=== PATIENT | female | born 1945 | race Caucasian/White ===

== ENCOUNTER 2017-02-12 10:23 | Inpatient (IN) | payer MEDICARE, OTHER ==
[~2017-02-12] VITALS: Ht 162.6 cm; Wt 56.3 kg
[~2017-02-12 10:23] MED LIST: ACYC800T PO; ALB0.5V INH; ALBU2.5V4 NEB; ALBU8.5H2 INH; BENZ100C18 PO; BENZ200C25 PO; BUDE6HFA IH; CEFP250T2 PO; CHOL200018 PO; CYAN100053 IJ; CYAN10006 PO; FLUT1DIS26 IH; FURO40TA4 PO; GUAI-370 PO; KCL10CCR PO; LEVO50TA PO; LEVO750T24 PO; PRD20T PO; PRED10TA PO; Prednisone PO; RT-COMBINH IH; TIOT18CA IH
[2017-02-12 12:00] VITALS: BP 124/69
[2017-02-12] MEDS ORDERED: ALPRAZolam 0.25 MG (XANAX) TAB PO PRN (13:00)
[2017-02-12] MEDS ORDERED: guaiFENesin SYRUP 100 MG/5 ML 10 ML (ROBITUSSIN SF) PO SCH (13:00)
[2017-02-12] MEDS ORDERED: BENZONATATE 100 MG (TESSALON) CAPSULE PO PRN (13:00)
[2017-02-12] MEDS ORDERED: NITROGLYCERIN SUBLINGUAL 0.4 MG TAB (NITROSTAT) SL PRN (13:00)
[2017-02-12] MEDS ORDERED: APAP 325 MG/10.15 ML LIQ (TYLENOL) UDC PO PRN (13:00)
[2017-02-12] MEDS ORDERED: RT-IPRATROPIUM (ATROVENT) 0.5MG/2.5ML AMP IH SCH ×3 (14:00→21:00)
[2017-02-12] MEDS ORDERED: RT-LEVALBUTEROL (XOPENEX) 1.25 MG/3 ML NEB NON-FORMULARY INH SCH ×2 (14:00→18:00)
[2017-02-12] MEDS ORDERED: RT-IPRATROPIUM (ATROVENT) 0.5MG/2.5ML AMP IH ONE (14:09)
--- NOTE | 2017-02-12 14:21 | Occupational Therapy Eval ---
OT Evaluation-General/PLF Medical Diagnosis Admission Date Feb 12, 2017 at 11:58 Medical Diagnosis: COPD exacerbation Onset Date: Jan 02, 2017 Therapy Diagnosis Therapy Diagnosis: Weakness, Decreased ADL skills Height/Weight Height (Feet): 5 Height (Inches): 4.00 Weight (Pounds): 124 Weight (Ounces): 2.0 Weight Bear Status Weight Bearing Restriction: Weight Bearing/Tolerated Referral Physician: Dr. Steele Referral Reason: Activity Tolerance, Self Care, Evaluation/Treatment, Strengthening/ROM Medical History Pertinent Medical History: COPD, GERD Additional Medical History CHF, anxiety, GERD, hypernatremia, pulmonary nodules Current History Pt. had to be put on a vent and then had trach placed. [place] orders state that pt's dysphagia cleared for regular diet with thin liquids. Reviewed History: Yes Social History Home: Single Level Current Living Status: Alone Entry Into Home: Stairs With Railing Steps Into Home: 2 ADL-Prior Level of Function ADL PLOF Comments Previous to original hospitalization, pt is able to nod that she was independent with basic self care needs. Was still driving as well. DME/Equipment: Bath Chair, Tub/Shower Drive Self: Yes OT Current Status Subjective Pt. is able to indicate that she is not having pain. However, indicates that she gets very short of breath. Daughter explains that she gets very anxious as well. Appearance Pt. in bed. Agrees to OT evaluation. Daughter in room. Mental Status/Objective Patient Orientation: Person, Place Current Glasses/Contacts: Yes Hand Dominance: Right Upper Extremity ROM Pt. is able to flex bilateral shoulders to approximately 90 degrees. This is difficult for her and takes great effort. Upper Extremity Coordination intact Upper Extremity Strength NT due to pt's limited strength and SOA with any effort. ADL-Treatment Functional [place] Measure 0=Not Assessed/NA 4=Minimal Assistance 1=Total Assistance 5=Supervision or Setup 2=Maximal Assistance 6=Modified [place] 3=Moderate Assistance 7=Complete IndependenceIRFPAI Quality Coding Scale 6 Independent with activity with or without an assistive device 5 Patient requires set up or clean up by helper. Patient completes activity by themselves 4 Supervision or touching assist (CGA). [place] provide cues , steadying assist 3 The helper provides less than half the effort to complete the activity 2 The helper provides more than half the effort to complete the activity 1 Dependent. The helper does all the effort to complete an activity 7 Patient refused to complete or attempt activity 9 The patient did not perform the activity before the current illness or injury 88 Not attempted due to Medical conditions or safety concerns Lower Body Dressing (FIM): 5 (Pt. is able to doff and don socks on side of bed. However, requires increased time and effort.) Transfers (B, C, W/C) (FIM): 4 (Pt. requires SBA for supine-sit, and min assist for sit-stand.) Other Treatments Pt. requires frequent rest breaks. Exerts great effort to stay on side of bed. Pt. on 5 L 02, but RT to come in to assess pt. Pt's 02 sats at 97% on side of bed. Transferred back to bed with SBA. Required max x 2 for bed mobility. Education OT Patient Education: Correct positioning, Progress toward Goal/Update tx plan , Purpose of tx/functional activities, Reviewed precautions, Rehab process, Transfer techniques Teaching Recipient: Patient, Family Teaching Methods: Demonstration, Discussion Response to Teaching: Verbalize Understanding, Return Demonstration OT Short Term Goals Short Term Goals Time Frame: Feb 19, 2017 Eating(FIM): 5 Grooming(FIM): 5 Bathing(FIM): 4 Upper Body Dressing(FIM): 5 Lower Body Dressing(FIM): 5 Toileting(FIM): 4 Transfers (B,C,W/C) (FIM): 5 Toilet/Commode Transfer(FIM): 5 Shower Transfer(FIM): 4 Additional Short Term Goals: 1-Demonstrate ADL Tasks, 2-Verbalize Understanding , 3-ImproveStrength/Adriana 1=Demonstrate adherence to instructed precautions during ADL tasks. 2=Patient will verbalize/demonstrate understanding of assistive devices/ modifications for ADL. 3=Patient will improve strength/tolerance for activity to enable patient to perform ADL's. OT Fpc Goals A/C Tech Goals Time Frame: Mar 05, 2017 Eating (FIM): 6 Eating (QC): 6 Groomin Oral Hygiene (QC): 6 Bathing(FIM): 5 Shower/Bathe Self (QC): 5 Upper Body Dressing(FIM): 6 Upper Body Dressing (QC): 6 Lower Body Dressing(FIM): 6 Lower Body Dressing (QC): 6 On/Off Footwear (QC): 6 Toileting(FIM): 6 Toileting Hygiene (QC): 6 Transfers (B,C,W/C) (FIM): 6 Toilet/Commode Transfer(FIM): 6 Toilet/Commode Transfer (QC): 6 Shower Transfer(FIM): 5 Additional Goals: 1-Demonstrate ADL Tasks, 2-Verbalize Understanding, 3- ImproveStrength/Adriana 1=Demonstrate adherence to instructed precautions during ADL tasks. 2=Patient will verbalize/demonstrate understanding of assistive devices/ modifications for ADL. 3=Patient will improve strength/tolerance for activity to enable patient to perform ADL's. OT Education/Plan Problem List/Assessment Assessment: Decreased Activ Tolerance, Decreased UE Strength, Dependent Transfers, Impaired Bed Mobility, Impaired Funct Balance, Impaired I ADL's, Impaired Self-Care Skills, Restricted Funct UE ROM Discharge Recommendations Plan/Recommendations: Continue POC Therapy D/C Recommendations: Home w/ Family Support, Occupational Therapy Home Care, Scheduled Assistance Equpiment Recommendations-D/C: Extended Bath Bench, Hip Kit Barriers to Progress Pt. becomes significantly SOA with exertion. Target Placement Pt. would like to return to her own home. Treatment Plan/Plan of Care Treatment,Training & Education: Yes Patient would benefit from OT for education, treatment and training to promote independence in ADL's, mobility, safety and/or upper extremity function for ADL' s. Plan of Care: ADL Retraining, Functional Mobility, Group Exercise/Act as Ind, UE Funct Exercise/Act Treatment Duration: Mar 05, 2017 # of days/week 5-6 Visits Per Week: 10-12 Minutes/Day (M-F): 60-90 Minutes/Day (Sat/[place]): PRN Agreement: Yes Rehab Potential: Fair Time/GCodes Start Time: 12:50 Stop Time: 13:15 Total Time Billed (hr/min): 25 Billed Treatment Time 1, [id number], [id number] WILL PEGUERO OT Feb 12, 2017 14:21
--- NOTE | 2017-02-12 15:04 | ST Cognitive Linguistic Eval ---
Speech Evaluation-General Medical Diagnosis COPD exacerbation Onset Date: Jan 02, 2017 Therapy Diagnosis Therapy Diagnosis: Mild Cognitive Impairment Precautions Precautions: Aspiration Referral Referring Physician: Dr. Asaf Steele Cognitive Evaluation Medical History Pertinent Medical History: COPD, GERD Emphysema Current History Tracheostomy tube (#6 [place]), PEG tube Reviewed History: Yes Social History Current Living Status: Alone Speech PLF-Current Status Prior Level of Function The patient reported consuming a regular diet with thin liquids at home without current challenges including signs/symptoms of aspiration. Subjective The patient was recently admitted to [facility] with a diagnosis of COPD exacerbation. The patient reported fatigue upon entrance (RT was present), however, was agreeable to cognitive evaluation. The patient currently has a tracheostomy tube in place. Per patient's daughter, the patient has a [place] Speaking Valve (PMV), however, wishes to use digital occlusion instead. The patient's daughter, Candy, stated the patient becomes short of breath with PMV use. The patient's daughter will bring the PMV on 02/13/2017. Additionally, the patient has a PEG tube. The patient reported she receives nocturnal feedings and medications through her PEG tube. The patient (present family members and recent note from speech pathology of [facility] ) consumes a regular diet with thin liquids by mouth. The patient (and family members) denied signs/symptoms of aspiration with PO intake stating the reason she does not eat is secondary to her shortness of breath and effort it takes to consume adequate intake. As the patient does not require the PEG tube, she was asked if she wanted to be evaluated for oral intake of pills. The patient deferred and wishes to leave her nutrition status as is. Language Eval: Auditory Comprehends Simple Yes/No Ques: Functional Indent/Objects Multiple [place]: Functional Ident/Pics in Multiple [place]: Functional Follows 1-Step Commands: Functional Follows General Conversations: Functional Language Eval: Verbal Language Completes Spontaneous Greeting: Functional Produces Auto, Serial Info: Functional Imitates Simple Words/Phrases: Functional Word Finding: Functional Requests Basic Needs: Functional States Basic Personal Info: Functional Objective Cognitive Domain Attention: Mild (Appears secondary to fatigue and discomfort.) Memory: Mild (Per patient, she has experienced negative changes in her memory since admission.) Problem Solving: Mild (Appears secondary to fatigue and discomfort) Objective Impression The patient demonstrated mild cognitive impairments including the areas of memory and functional problem solving. Additional evaluation will take place as the patient is able to tolerate a longer treatment session. Communication/Social Cognition Comprehension: 5 Expression: 4 Social Interaction: 5 Problem Solvin Memory: 4 Speech Short Term Goals Short Term Goals Short Term Goals 1. The patient will complete full cognitive assessment. 2. The patient will recall and demonstrate three functional memory tasks for use at home with 80% accuracy and mild clinician verbal prompting. Time Frame-STG: One Week Speech Mcfp Goals Mcfp Goals 1. The patient will demonstrate improved cognitive linguistic skills for increased safety and function with ADL's. Time Frame: Two Weeks Comprehension: 6 Expression: 5 Social Interaction: 5 Problem Solvin Memory: 5 Speech-Plan Treatment Plan Speech Therapy Treatment Plan: Continue Plan of Care Continue skilled speech pathology to target functional memory strategies for use at home. Treatment Duration: Feb 26, 2017 # of days/week Five. Visits Per Week: Five. Minutes/Day (M-F): 30 Rehab Potential: Fair Safety Risks/Education Teaching Recipient: Patient, Family Teaching Methods: Discussion Response to Teaching: Verbalize Understanding, Reinforcement Needed Education Topics Provided: Results, Recommendations Time Speech Therapy Time In: 14:30 Speech Therapy Time Out: 14:45 Total Billed Time: 15 Billed Treatment Time 1, JONO AGUILA Feb 12, 2017 15:03
--- NOTE | 2017-02-12 15:20 | Physical Therapy Progress Note ---
Therapy Progress Note Pt arrived this date via EMS. Pt has been seen by OT and ST. Pt anxious at this time. Family present. Initially agreed to PT but then declined noting they felt it would increase her anxiety. Will complete PT evaluation tomorrow. ANY CAT PT Feb 12, 2017 15:20
[2017-02-12] MEDS ORDERED: RT-LEVALBUTEROL (XOPENEX) 1.25 MG/3 ML NEB NON-FORMULARY INH PRN (15:30)
[2017-02-12 16:38] LABS: ABG BASE EXCESS 19.3 MMOL/L (-2.5-2.5); ABG OXYGEN SATURATION 100 % (94-100); ABG PO2 139 MMHG (79-93); ABG TCO2 49.9 MMOL/L (21.0-31.0)
[2017-02-12 16:41] LABS: ABG PCO2 103 MMHG (35-45); ABG PH 7.28 (7.37-7.43)
[2017-02-12 16:42] LABS: ABG HCO3 47 MMOL/L (23-27); ALLENS TEST YES-POS; PATIENT TEMP 98.9
[2017-02-12 16:48] LABS: BASOPHILS % (AUTO) 0 % (0-10); EOSINOPHILS % (AUTO) 0 % (0-10); LYMPHOCYTES # (AUTO) 0.4 X 10^3 (1.0-4.0); LYMPHOCYTES % (AUTO) 5 % (12-44); MEAN CORPUSCULAR HEMOGLOBIN 32 PG (25-34); MEAN CORPUSCULAR HGB CONC 31 G/DL (32-36); MEAN CORPUSCULAR VOLUME 105 FL (80-99); MEAN PLATELET VOLUME 9.7 FL (7.4-10.4); MONOCYTES # (AUTO) 0.6 X 10^3 (0.0-1.0); MONOCYTES % (AUTO) 7 % (0-12); NEUTROPHILS # (AUTO) 6.9 X 10^3 (1.8-7.8); NEUTROPHILS % (AUTO) 87 % (42-75); PLATELET COUNT 244 10^3/uL (130-400); RED BLOOD COUNT 3.26 10^6/uL (4.35-5.85); RED CELL DISTRIBUTION WIDTH 16.6 % (10.0-14.5); WHITE BLOOD COUNT 7.9 10^3/uL (4.3-11.0)
[2017-02-12 17:06] LABS: ALANINE AMINOTRANSFERASE 19 U/L (0-55); ALBUMIN 3.5 G/DL (3.2-4.5); ASPARTATE AMINO TRANSFERASE 18 U/L (5-34); BILIRUBIN,TOTAL 0.3 MG/DL (0.1-1.0); BLOOD UREA NITROGEN 12 MG/DL (7-18); BUN/CREATININE RATIO 20; CALCIUM 9.4 MG/DL (8.5-10.1); CHLORIDE 95 MMOL/L (98-107); CREATININE SERUM 0.61 MG/DL (0.60-1.30); GFR ESTIMATED > 60; GLUCOSE 144 MG/DL (70-105); MAGNESIUM 2.5 MG/DL (1.8-2.4); POTASSIUM 4.5 MMOL/L (3.6-5.0); SODIUM 146 MMOL/L (135-145); TOTAL PROTEIN 5.8 G/DL (6.4-8.2)
[2017-02-12 17:07] LABS: BAND NEUTROPHILS 1 %; BASOPHILS % (MANUAL) 0 %; EOSINOPHILS % (MANUAL) 0 %; LYMPHOCYTES % (MANUAL) 6 %; NEUTROPHILS % (MANUAL) 93 %
[2017-02-12 17:08] LABS: ANISOCYTOSIS SLIGHT; HYPOCHROMASIA SLIGHT
[2017-02-12 17:10] LABS: ANION GAP 4 MMOL/L (5-14); CARBON DIOXIDE 47 MMOL/L (21-32)
[2017-02-12] MEDS ORDERED: IPRA0.2S51 IH (17:23)
[2017-02-12] MEDS ORDERED: NITR0.4T SL (17:23)
[2017-02-12] MEDS ORDERED: BENZ100C23 PO (17:23)
[2017-02-12] MEDS ORDERED: SENN-20 PO (17:23)
[2017-02-12] MEDS ORDERED: ALPR0.254 PO (17:23)
[2017-02-12] MEDS ORDERED: MIDO10TA PO (17:23)
[2017-02-12] MEDS ORDERED: METH40VI2 IV (17:23)
[2017-02-12] MEDS ORDERED: CALC-250 PO (17:23)
[2017-02-12] MEDS ORDERED: PANT40TA3 PO (17:23)
[2017-02-12] MEDS ORDERED: LEVA1.2516 INH ×2 (17:23)
[2017-02-12] MEDS ORDERED: MELA3TAB PO (17:23)
[2017-02-12] MEDS ORDERED: TRAZ100T92 PO (17:23)
[2017-02-12] MEDS ORDERED: AC160U10 PO (17:23)
[2017-02-12] MEDS ORDERED: POLY17PO23 PO (17:23)
[2017-02-12] MEDS ORDERED: GUAI100L13 PO (17:23)
[2017-02-12] MEDS ORDERED: ACID1TAB PO (17:23)
[2017-02-12] MEDS ORDERED: LEVO50TA PO (17:23)
[2017-02-12] MEDS ORDERED: QUET25TA73 PO (17:23)
[2017-02-12] MEDS ORDERED: MIRT15TA8 PO (17:23)
[2017-02-12 17:26] VITALS: BP 147/67
--- NOTE | 2017-02-12 17:48 | Diagnostic Imaging Report ---
CHEST 1 VIEW, AP/PA ONLY INDICATION: Wheezing, shortness of breath. COMPARISON: 05/04/2015. FINDINGS: Support Devices: Tracheostomy tube has tip approximately 6 cm above the laura. Right PICC has tip in the upper SVC. Chest: Patchy heterogeneous opacities in the left lung base are similar to prior examination. No new airspace disease. No pleural effusion or pneumothorax. Normal heart size. Stable atherosclerotic and tortuous aorta. IMPRESSION: 1. Support devices as above. 2. Left basilar heterogeneous patchy opacities are similar to 2015 examination. This may be chronic in nature, although a recurrent infectious/inflammatory process cannot be excluded. Dictated by: Dictated on workstation # [id number]
[2017-02-12 17:50] VITALS: BP 147/67
[2017-02-12] MEDS ORDERED: methylPREDNISolone 40 MG/ML (Solu-MEDROL) VIAL IV SCH (18:00)
[2017-02-12] MEDS ORDERED: MIRTAZAPINE 15 MG (REMERON) TAB PO SCH (21:00)
[2017-02-12] MEDS ORDERED: POLYETHYLENE GLYCOL 17 GM (MIRALAX) PACK PO SCH (21:00)
[2017-02-12] MEDS ORDERED: MELATONIN 3 MG TABLET PO SCH (21:00)
[2017-02-12] MEDS ORDERED: traZODone 100 MG (DESYREL) TAB PO SCH (21:00)
[2017-02-12] MEDS ORDERED: LACTOBACILLUS Acidoph/Bulgar (LACTINEX/FLORANEX) TAB PO SCH (21:00)
[2017-02-12] MEDS ORDERED: SENNA W/DOCUSATE (SENOKOT S) TABLET PO SCH (21:00)
[2017-02-12] MEDS ORDERED: QUEtiapine 25 MG (SEROquel) TAB IMMEDIATE RELEASE PO SCH (21:00)
[2017-02-12] MEDS ORDERED: PANTOPRAZOLE 40 MG (PROTONIX) TAB PO SCH (21:00)
[2017-02-12] MEDS ORDERED: METOCLOPRAMIDE 10MG/10ML ORAL SOL(REGLAN) UDC PO SCH (21:00)
[2017-02-13] MEDS ORDERED: LEVOTHYROXINE 50 MCG (LEVOTHROID) TAB PO SCH (06:30)
[2017-02-13] MEDS ORDERED: predniSONE 10 MG TAB PO SCH (07:00)
[2017-02-13] MEDS ORDERED: predniSONE 5 MG TAB PO SCH (07:00)
[2017-02-13] MEDS ORDERED: MIDODRINE 10 MG TAB PO SCH ×3 (09:00)
[2017-02-13] MEDS ORDERED: MIDODRINE 10 MG PO SCH (09:00)
[2017-02-13] MEDS ORDERED: VITAMIN D3 5,000 UNITS (CHOLECALCIFEROL ) CAPSULE PO SCH (09:00)
--- NOTE | 2017-02-13 10:11 | Therapy Team Discharge Summary ---
Therapy Discharge Summary Discharge Recommendations Date of Discharge Feb 12, 2017 at 17:47 Therapy D/C Recommendations: Home w/ Family Support, Occupational Therapy Home Care, Scheduled Assistance Speech-Language Pathology The patient was admitted to [facility] on 02/12/17 with a diagnosis of severe COPD exacerbation. The patient was evaluated by speech pathology and demonstrated a mild cognitive impairment in the area of memory. Prior to the onset of therapy, the patient was transferred to [facility] due to respiratory issues. The initial goals were not attempted or made. The patient will be discharged for speech services at this time. OT Chemical Equipment Repairer Goals Chemical Equipment Repairer Goals Time Frame: Mar 05, 2017 Eating (FIM): 6 Eating (QC): 6 Oral Hygiene (QC): 6 Grooming(FIM): 6 Bathing(FIM): 5 Shower/Bathe Self (QC): 5 Upper Body Dressing(FIM): 6 Upper Body Dressing (QC): 6 Lower Body Dressing(FIM): 6 Lower Body Dressing (QC): 6 On/Off Footwear (QC): 6 Toileting(FIM): 6 Toileting Hygiene (QC): 6 Transfers (B,C,W/C) (FIM): 6 Toilet/Commode Transfer(FIM): 6 Toilet/Commode Transfer (QC): 6 Shower Transfer(FIM): 5 Comprehension(FIM): 6 Expression (FIM): 5 Social Interaction(FIM): 5 Problem Solving(FIM): 5 Memory(FIM): 5 Additional Goals: 1-Demonstrate ADL Tasks, 2-Verbalize Understanding, 3- ImproveStrength/Adriana 1=Demonstrate adherence to instructed precautions during ADL tasks. 2=Patient will verbalize/demonstrate understanding of assistive devices/ modifications for ADL. 3=Patient will improve strength/tolerance for activity to enable patient to perform ADL's. Speech Shelter Goals Shelter Goals 1. The patient will demonstrate improved cognitive linguistic skills for increased safety and function with ADL's. Time Frame: Two Weeks Comprehension: 6 Expression: 5 Social Interaction: 5 Problem Solvin Memory: 5 JONO ALVARADO Feb 13, 2017 10:11
--- NOTE | 2017-02-14 08:26 | SHORT STAY SUMMARY ---
DATE OF ADMISSION: 02/12/2017 CHIEF COMPLAINT: Shortness of breath, difficulty with performing normal routine. HISTORY OF PRESENT ILLNESS: The patient is a 71-year-old female with a history of advanced COPD and chronic respiratory failure with home trilogy who admitted to [facility] on 01/02/2017 with acute respiratory failure secondary to exacerbation of COPD. She had been on outpatient Levaquin and prednisone prior to presenting to [place]. Multiple cultures and viral titers were all negative. She continued to deteriorate, however. She was admitted to hospitalist service and then went to the ICU due to obtunded state associated with elevated pCO2 greater 130. She could not be weaned from mechanical ventilation and underwent tracheostomy and PEG tube placement by Dr. Garcia. She experienced problems with hypotension which seemed to be induced by Ativan. She was treated with phenylephrine. stabilized and transferred to [facility] for vent weaning. She improved gradually and eats during the day and has supplemental tube feeds at night. She becomes more short of breath with eating. She was treated with antibiotics throughout her admission empirically as all cultures were negative. Currently, she requires assistance for ADLs and mobility skills. She has anxiety, depression and dyspnea on exertion, limited endurance, fatigues easily. She had been independent prior to all this but has a history of COPD exacerbations and was last on a ventilator 7 years ago and did not require tracheostomy and was weaned at that time. She has a supportive daughter, who is a teacher in [place], The patient lives in [place]. PCP Dr. Jesus. The Charge Account Identification Clerk at [place] Dr. Nath discussed the case with Dr. Steele prior to transfer to rehab at [facility] for ongoing therapies where she was referred so as to be closer to home. She was followed by log rafter, Dr. Nicolas at [facility] and Dr. Terrazas has been requested to follow patient here. PAST MEDICAL HISTORY: 1. COPD with acute exacerbation. 2. CHF. 3. Anxiety. 4. Depression. 5. GERD. 6. Hyperlipidemia. 7. Hypertension. PAST SURGICAL HISTORY: 1. Appendectomy. 2. Total hysterectomy. 3. Tonsillectomy. 4. Bladder mesh implantation. 5. Most recent tracheostomy and PEG tube placement. ALLERGIES: 1. INTOLERANCE TO HYDROCODONE. 2. OXYCODONE. FAMILY HISTORY: Noncontributory. Essentially as per above. SOCIAL HISTORY: Essentially as per above. REVIEW OF SYSTEMS: Dyspnea on exertion, easy fatigue, anxiety, depression and generalized weakness. MEDICATIONS: 1. Vitamin D3 5000 units p.o. daily. 2. Midodrine 5 mg p.o. daily to support blood pressure. 3. Prednisone 12.5 mg p.o. daily. 4. Synthroid 50 mcg p.o. daily. 5. Lactinex 1 tablet p.o. b.i.d. 6. Melatonin 6 mg p.o. at bedtime. 7. Reglan 10 mg p.o. at bedtime. 8. MiraLAX 17 grams p.o. at bedtime. 9. Remeron 50 mg p.o. at bedtime. 10. Protonix 40 mg p.o. b.i.d. 11. Seroquel 25 mg p.o. at bedtime. 12. Senokot-S 1 tablet p.o. b.i.d. 13. Trazodone 100 mg p.o. at bedtime. 14. Atrovent respiratory treatments q.6 hours. 15. Xopenex 1.25 mg respiratory treatments q.8 hours. 16. Guaifenesin 200 mg p.o. t.i.d. 17. Xanax 0.25 mg p.o. q.8 hours p.r.n. anxiety. 18. Tessalon 200 mg p.o. q.6 hours p.r.n. cough. 19. Nitrostat 0.4 mg q. 5 minutes p.r.n. Sublingual p.r.n. chest pain. PHYSICAL EXAMINATION: Significant for a female, appearing quite fatigued, lying in bed in no acute distress. VITAL SIGNS: She is afebrile. Pulse is 99, respirations 20, blood pressure 124/69. O2 sat 97% on 40% trach collar flow-in. HEENT: Vision, speech, hearing, grossly intact. No oral lesion is noted. NECK: Tracheostomy in place with trach collar. HEART: Regular rhythm. LUNGS: Clear. ABDOMEN: Soft, nontender. Bowel sounds present. EXTREMITIES: No lower leg edema. No calf tenderness. MUSCULOSKELETAL: She has functional active range of motion of all 4 extremities. NEUROLOGIC: Appears somewhat depressed but cognitively she was grossly intact. Sensation grossly intact to touch. She has generalized weakness. IMPRESSION: 1. General debilitation secondary to acute exacerbation of COPD with respiratory failure, currently on O2 by trach collar, status post tracheostomy. 2. Status post PEG tube placement for supplemental tube feeds. 3. Anxiety/depression, on medications. 4. Insomnia, on medications. 5. GERD, on medications. PLAN: The patient is admitted to [facility]U for a comprehensive program of inpatient rehabilitation with goal of maximizing level of functional independence prior to discharge home with family and home health care. The patient will have PT/OT 90 minutes per day, each discipline, 5 days week for gait strengthening, conditioning, ADLs, any patient/family/caregiver training necessary, any adaptive equipment and training necessary, energy conservation. Speech therapy to do cognitive assessment and treat as indicated. Rehabilitation nursing assist with bowel, bladder, skin, wound care, medication administration. The patient has a sacral pressure sore and Dr. Taylor, account resolution specialist consulted pain management. technical services librarian to assist with discharge planning, community reentry. Routine admission labs. Consult hospitalist and Dr. Terrazas and Dr. Jesus, her PCP. ESTIMATED LENGTH OF STAY: Two weeks. PROGNOSIS: Rehab prognosis appears fair for goal of enhancing level of functional independence prior to discharge home with home health care, hopefully modified independent to supervision for ADLs and mobility skills with decreased dyspnea on exertion and improved tolerance for normal routine. DIET: Regular. CODE STATUS: Family, patient requested DNR. POST ADMISSION PHYSICIAN ASSESSMENT: The preadmission screen unfortunately does not agree with the post admission assessment: Approximately 2 hours post admission the family presented to see patient and the patient and family became more anxious. The patient had an ABG which showed CO2 retention and respiratory acidosis. Dr. Terrazas felt the patient will be more appropriate for fourth floor medical care and the patient was transferred to the medical unit on 4th floor. No real therapies were able to be provided. The patient did have an assessment with OT and speech therapy. Perhaps once the patient further improves the patient may be considered for rehab. Otherwise perhaps senior care unit versus hospice/ palliative care consult. Short-term discharge note The patient was on rehab unit for less than 3 hours when she was transferred to the medical floor by Dr. Terrazas for evaluation and treatment. WBC 7.9, H&H 10.4/34, platelet count 244,000. Chemistry showed low total protein of 5.8, CO2 elevated at 47, blood glucose 144. ABG was abnormal indicating respiratory acidosis with pH low at 7.28, pCO2 elevated at 103, pO2 was 139, HC03 47. Vital signs as outlined above. She was assessed by speech therapy and her attention appeared to be mildly impaired, which appear to be secondary to fatigue and discomfort. Memory was mildly impaired, which the patient reports having since admission to [facility]. Mild problem solving was noted as well felt to be secondary to fatigue and discomfort. Speech therapy was going to work with patient, but as per above the patient was only on rehab for short period of time. The patient was assessed by Dr. Terrazas as per above and felt to be more appropriate for medical floor of admission. DISCHARGE INSTRUCTIONS: The patient will have follow-up with Dr. Terrazas and quite possibly hospital service in lieu of Dr. Jesus while on the medical floor. Continue current medications and nocturnal tube feedings. She is on multiple medications and certainly may benefit from being assessed and perhaps some weaned particularly in regard to her pills for sleep and for anxiety and depression. Dr. Terrazas has started IV Solu-Medrol for her. DISCHARGE DIAGNOSES: 1. Rehabilitation general debilitation secondary to acute exacerbation of COPD with resulting respiratory failure asociated with respirtory acidosis, status post trach and PEG tube outside facility. 2. Anxiety/depression on medication. 3. GERD, on medication 4. Macrocytic anemia. CONDITION AT DISCHARGE: Unimproved, but stable for transfer to 4th floor, medical unit. PROGNOSIS: Rehab prognosis appears somewhat guarded at this point. It is my understanding that the patient was made comfort care soon after transfer to medical unit and the next day the 13 of february Job ID: [id number] Dictated Date: 02/12/2017 21:03:36 Road Supervisor Date: 02/13/2017 08:08:18/noel FITZGERALD
--- NOTE | 2017-02-16 08:28 | Therapy Team Discharge Summary ---
Therapy Discharge Summary Discharge Recommendations Date of Discharge Feb 12, 2017 at 17:47 Occupational Therapy Pt. was seen by occupational therapy for initial evaluation on this rehab unit. Goals were written at that time. Please see initial eval. Pt. transferred to acute care the next day due to decline in medical status. Pt. the day after that. 0825 OT Skilled Nursing Goals Designer Writer Goals Time Frame: Mar 05, 2017 Eating (FIM): 6 Eating (QC): 6 Oral Hygiene (QC): 6 Grooming(FIM): 6 Bathing(FIM): 5 Shower/Bathe Self (QC): 5 Upper Body Dressing(FIM): 6 Upper Body Dressing (QC): 6 Lower Body Dressing(FIM): 6 Lower Body Dressing (QC): 6 On/Off Footwear (QC): 6 Toileting(FIM): 6 Toileting Hygiene (QC): 6 Transfers (B,C,W/C) (FIM): 6 Toilet/Commode Transfer(FIM): 6 Toilet/Commode Transfer (QC): 6 Shower Transfer(FIM): 5 Comprehension(FIM): 6 Expression (FIM): 5 Social Interaction(FIM): 5 Problem Solving(FIM): 5 Memory(FIM): 5 Additional Goals: 1-Demonstrate ADL Tasks, 2-Verbalize Understanding, 3- ImproveStrength/Adriana 1=Demonstrate adherence to instructed precautions during ADL tasks. 2=Patient will verbalize/demonstrate understanding of assistive devices/ modifications for ADL. 3=Patient will improve strength/tolerance for activity to enable patient to perform ADL's. Speech Designer Writer Goals Designer Writer Goals 1. The patient will demonstrate improved cognitive linguistic skills for increased safety and function with ADL's. Time Frame: Two Weeks Comprehension: 6 Expression: 5 Social Interaction: 5 Problem Solvin Memory: 5 WILL PEGUERO OT Feb 16, 2017 08:28
--- OUTSIDE RECORDS SUMMARY | 2017-03-08 06:28 | XMS REPORT | Continuity of Care Document ---
Author Author [facility] Organization [facility] Address Unknown Phone Unavailable Allergies Active Description Code Type Severity Reaction Onset Reported/Identified Relationship to Patient Clinical Status Yes clarithromycin [id number] Drug Allergy Unknown N/A 05/04/2015 Yes albuterol [id number] Drug Allergy Unknown N/A 02/12/2017 Yes hydrocodone [id number] Drug Allergy Unknown Sedation 02/12/2017 Yes oxycodone [id number] Drug Allergy Unknown Sedation 02/12/2017 Medications Problems Date Dx Coded Attending Type Code Diagnosis Diagnosed By 09/23/2010 Ot 300.00 09/23/2010 Ot 305.1 09/23/2010 Ot 486 09/23/2010 Ot 491.21 09/23/2010 Ot 518.81 09/23/2010 Ot 599.0 09/23/2010 Ot 795.5 01/27/2011 Ot 496 01/27/2011 Ot 786.2 01/27/2011 Ot V57.89 04/30/2011 Ot 496 04/30/2011 Ot 786.2 04/30/2011 Ot V57.89 09/19/2012 Ot 486 05/04/2015 Ot V76.12 05/04/2015 Ot 787.91 05/04/2015 Ot 496 05/04/2015 Ot 786.2 05/04/2015 Ot V57.89 05/04/2015 Ot 416.8 05/04/2015 Ot 486 05/04/2015 CATIE ROSAS Ot 433.30 05/04/2015 CATIE ARSHAD APRN Ot 780.60 05/04/2015 CATIE ARSHAD APRN Ot 786.2 05/04/2015 Ot 496 05/04/2015 Ot 786.2 05/04/2015 Ot V57.89 05/04/2015 Ot 486 05/06/2015 BENJA ROSAS DO Ot 275.42 05/06/2015 BENJA ROSAS DO Ot 276.8 05/06/2015 ROSAS DO, BENJA Painting Ot 300.00 05/06/2015 ROSAS DO, BENJA Painting Ot 416.9 05/06/2015 ROSAS DO, BENJA Painting Ot 465.9 05/06/2015 ROSAS DO, BENJA Painting Ot 491.21 05/06/2015 ROSAS DO, BENJA Painting Ot 782.3 05/06/2015 ROSAS DO, BENJA Painting Ot 785.0 05/06/2015 ROSAS DO, BENJA Painting Ot V15.82 05/21/2015 ROSAS DO, BENJA Painting Ot 244.9 05/21/2015 ROSAS DO, BENJA Painting Ot 276.69 05/21/2015 ROSAS DO, BENJA Painting Ot 416.8 05/21/2015 ROSAS DO, BENJA Painting Ot 496 05/21/2015 ROSAS DOBENJA Ot 518.84 05/21/2015 ROSAS DOBENJA Ot 599.0 05/21/2015 ROSAS DO BENJA Painting Ot V15.82 02/12/2017 Ot 486 PNEUMONIA, ORGANISM NOS 02/12/2017 MORRO CASEY, ANTIONE Serrano Ot F32.9 MAJOR DEPRESSIVE DISORDER, SINGLE EPISOD 02/12/2017 ANTIONE HOOKER MD, Ot F41.9 ANXIETY DISORDER, UNSPECIFIED 02/12/2017 MORRO CASEY, ANTIONE Serrano Ot G47.00 INSOMNIA, UNSPECIFIED 02/12/2017 ANTIONE HOOKER MD Ot J44.9 CHRONIC OBSTRUCTIVE PULMONARY DISEASE, U 02/12/2017 ANTIONE HOOKER MD Ot J96.10 CHRONIC RESPIRATORY FAILURE, UNSP W HYPO 02/12/2017 ANTIONE HOOKER MD Ot K21.9 GASTRO-ESOPHAGEAL REFLUX DISEASE WITHOUT 02/12/2017 ANTIONE HOOKER MD Ot L89.150 PRESSURE ULCER OF SACRAL REGION, UNSTAGE 02/12/2017 ANTIONE HOOKER MD Ot Z93.0 TRACHEOSTOMY STATUS 02/12/2017 ANTIONE HOOKER MD Ot Z93.1 GASTROSTOMY STATUS 02/13/2017 SABRA NEWMAN DO, Ot F41.9 ANXIETY DISORDER, UNSPECIFIED 02/13/2017 SABRA NEWMAN DO, Ot J44.9 CHRONIC OBSTRUCTIVE PULMONARY DISEASE, U 02/13/2017 SABRA NEWMAN DO Ot R06.00 DYSPNEA, UNSPECIFIED 02/13/2017 NEWMAN DO SABRA Ot Z51.5 ENCOUNTER FOR PALLIATIVE CARE 02/13/2017 NEWMAN DO SABRA Ot Z66 DO NOT RESUSCITATE 02/13/2017 TRENT DO SABRA Ot Z87.891 PERSONAL HISTORY OF NICOTINE DEPENDENCE 02/13/2017 NEWMAN DO SABRA Ot Z93.0 TRACHEOSTOMY STATUS 02/13/2017 TRENT DO SABRA Ot F41.9 ANXIETY DISORDER, UNSPECIFIED 02/13/2017 TRENT DO SABRA Ot J44.9 CHRONIC OBSTRUCTIVE PULMONARY DISEASE, U 02/13/2017 NEWMAN DO SABRA Ot R06.00 DYSPNEA, UNSPECIFIED 02/13/2017 NEWMAN DO SABRA Ot Z51.5 ENCOUNTER FOR PALLIATIVE CARE 02/13/2017 NEWMAN DO SABRA Ot Z66 DO NOT RESUSCITATE 02/13/2017 TRENT DO SABRA Ot Z87.891 PERSONAL HISTORY OF NICOTINE DEPENDENCE 02/13/2017 TRENT DO SABRA Ot Z93.0 TRACHEOSTOMY STATUS 02/13/2017 TRENT DO SABRA Ot F41.9 ANXIETY DISORDER, UNSPECIFIED 02/13/2017 TRENT DO SABRA Ot J44.9 CHRONIC OBSTRUCTIVE PULMONARY DISEASE, U 02/13/2017 TRENT DO SABRA Ot R06.00 DYSPNEA, UNSPECIFIED 02/13/2017 TRENT DO SABRA Ot Z51.5 ENCOUNTER FOR PALLIATIVE CARE 02/13/2017 NEWMAN DO SABRA Ot Z66 DO NOT RESUSCITATE 02/13/2017 TRENT DO SABRA Ot Z87.891 PERSONAL HISTORY OF NICOTINE DEPENDENCE 02/13/2017 TRENT DO SABRA Ot Z93.0 TRACHEOSTOMY STATUS 02/14/2017 TRENT DO SABRA Ot E03.9 HYPOTHYROIDISM, UNSPECIFIED 02/14/2017 TRENT DO SABRA Ot E78.00 PURE HYPERCHOLESTEROLEMIA, UNSPECIFIED 02/14/2017 TRENT DO SABRA Ot F41.9 ANXIETY DISORDER, UNSPECIFIED 02/14/2017 TRENT DO SABRA Ot I10 ESSENTIAL (PRIMARY) HYPERTENSION 02/14/2017 TRENT DO SABRA Ot J44.9 CHRONIC OBSTRUCTIVE PULMONARY DISEASE, U 02/14/2017 TRENT DO SABRA Ot J96.02 ACUTE RESPIRATORY FAILURE WITH HYPERCAPN 02/14/2017 SABRA NEWMAN DO Ot Z51.5 ENCOUNTER FOR PALLIATIVE CARE 02/14/2017 SABRA NEWMAN DO Ot Z66 DO NOT RESUSCITATE 02/14/2017 SABRA NEWMAN DO Ot Z87.891 PERSONAL HISTORY OF NICOTINE DEPENDENCE 02/14/2017 SABRA NEWMAN DO Ot Z93.0 TRACHEOSTOMY STATUS Procedures Results Test Result Range Complete blood count (CBC) with automated white blood cell (WBC) differential - 02/12/17 14:43 Blood leukocytes automated count (number/volume) 7.9 10*3/ uL 4.3-11.0 Blood erythrocytes automated count (number/volume) 3.26 10*6 /uL 4.35-5.85 Venous blood hemoglobin measurement (mass/volume) 10.4 g/dL 11.5-16.0 Blood hematocrit (volume fraction) 34 % 35-52 Automated erythrocyte mean corpuscular volume 105 [foz_us] 80-99 Automated erythrocyte mean corpuscular hemoglobin (mass per erythrocyte) 32 pg 25-34 Automated erythrocyte mean corpuscular hemoglobin concentration measurement ( mass/volume) 31 g/dL 32-36 Automated erythrocyte distribution width ratio 16.6 % 10.0-14.5 Automated blood platelet count (count/volume) 244 10*3/uL 130-400 Automated blood platelet mean volume measurement 9.7 [foz_us ] 7.4-10.4 Automated blood neutrophils/100 leukocytes 87 % 42-75 Automated blood lymphocytes/100 leukocytes 5 % 12-44 Blood monocytes/100 leukocytes 7 % 0-12 Automated blood eosinophils/100 leukocytes 0 % 0-10 Automated blood basophils/100 leukocytes 0 % 0-10 Blood neutrophils automated count (number/volume) 6.9 10*3 1.8-7.8 Blood lymphocytes automated count (number/volume) 0.4 10*3 1.0-4.0 Blood monocytes automated count (number/volume) 0.6 10*3 0.0-1.0 Automated eosinophil count 0.0 10*3/uL 0.0-0.3 Automated blood basophil count (count/volume) 0.0 10*3/uL 0.0-0.1 Blood manual differential performed detection - 02/12/17 14:43 Blood monocytes/100 leukocytes 0 % NRG Manual blood segmented neutrophils/100 leukocytes 93 % NRG Blood band neutrophils/100 leukocytes 1 % NRG Manual blood lymphocytes/100 leukocytes 6 % NRG Manual eosinophils/100 leukocytes in nose 0 % NRG Manual blood basophils/100 leukocytes 0 % NRG Blood anisocytosis detection by light microscopy SLIGHT NRG Blood hypochromia detection by light microscopy SLIGHT NRG Comprehensive metabolic panel - 02/12/17 14:43 Serum or plasma sodium measurement (moles/volume) 146 mmol/ L 135-145 Serum or plasma potassium measurement (moles/volume) 4.5 mmol/L 3.6-5.0 Serum or plasma chloride measurement (moles/volume) 95 mmol/ L 98-107 Carbon dioxide 47 mmol/L 21-32 Serum or plasma anion gap determination (moles/volume) 4 mmol/L 5-14 Serum or plasma urea nitrogen measurement (mass/volume) 12 mg/dL 7-18 Serum or plasma creatinine measurement (mass/volume) 0.61 mg /dL 0.60-1.30 Serum or plasma urea nitrogen/creatinine mass ratio 20 NRG Serum or plasma creatinine measurement with calculation of estimated glomerular filtration rate > NRG Serum or plasma glucose measurement (mass/volume) 144 mg/dL 70-105 Serum or plasma calcium measurement (mass/volume) 9.4 mg/dL 8.5-10.1 Serum or plasma total bilirubin measurement (mass/volume) 0.3 mg/dL 0.1-1.0 Serum or plasma alkaline phosphatase measurement (enzymatic activity/volume) 78 U/L 40-136 Serum or plasma aspartate aminotransferase measurement (enzymatic activity/ volume) 18 U/L 5-34 Serum or plasma alanine aminotransferase measurement (enzymatic activity/volume ) 19 U/L 0-55 Serum or plasma protein measurement (mass/volume) 5.8 g/dL 6.4-8.2 Serum or plasma albumin measurement (mass/volume) 3.5 g/dL 3.2-4.5 Magnesium - 02/12/17 14:43 Magnesium 2.5 mg/dL 1.8-2.4 Serum or plasma lithium measurement (moles/volume) - 02/12/17 14:43 BNP level 46.1 pg/mL <100.0 Arterial blood gas measurement - 02/12/17 16:31 Blood pCO2 103 mm[Hg] 35-45 Blood pO2 139 mm[Hg] 79-93 Arterial blood bicarbonate measurement (moles/volume) 47 mmol/L 23-27 Arterial blood base excess by calculation 19.3 mmol/L -2.5-2.5 Arterial blood oxygen saturation measurement 100 % 94-100 * Inhaled oxygen flow rate 75% NRG Arterial blood pH measurement with patient temperature correction 7.28 7.37-7.43 Arterial blood carbon dioxide, total measurement (moles/volume) 49.9 mmol/L 21.0-31.0 Body site RT RAD NRG Assessment of wrist artery patency prior to arterial puncture YES-POS NRG Setting of ventilation mode NO NRG Measurement of body temperature 98.9 NRG Arterial blood gas measurement - 02/13/17 03:45 Blood pCO2 110 mm[Hg] 35-45 Blood pO2 76 mm[Hg] 79-93 Arterial blood bicarbonate measurement (moles/volume) 48 mmol/L 23-27 Arterial blood base excess by calculation 19.8 mmol/L -2.5-2.5 Arterial blood oxygen saturation measurement 95 % 94-100 * Inhaled oxygen flow rate 100% NRG Arterial blood pH measurement with patient temperature correction 7.26 7.37-7.43 Arterial blood carbon dioxide, total measurement (moles/volume) 51.0 mmol/L 21.0-31.0 Body site L RAD NRG Assessment of wrist artery patency prior to arterial puncture YES-POS NRG Setting of ventilation mode NO NRG Measurement of body temperature 98.6 NRG Encounters ACCT No. Visit Date/Time Discharge Status Pt. Type Provider Facility Loc./Unit Complaint [id number] 02/12/2017 18:01:00 2016 07:55:00 DIS Inpatient SABRA NEWMAN DO [facility] 4TH COPD, RESPIRATORY FAILURE [id number] 02/12/2017 11:58:00 2016 17:47:00 DIS Inpatient ANTIONE HOOKER MD [facility] IRF RESPIRATORY FAILURE, COPD [id number] 05/18/2015 12:15:00 2014 12:40:00 DIS Inpatient BENJA ROSAS DO [facility] 4TH [id number] 05/04/2015 07:08:00 2014 17:33:00 DIS Inpatient BENJA ROSAS DO [facility] 4TH [id number] 05/16/2013 16:14:00 2012 23:59:59 CLS Outpatient CATIE ARSHAD MANAGER DEVELOPMENT [facility] RAD [id number] 04/12/2013 11:48:00 2012 23:59:59 CLS Outpatient ROSASCATIE Fortunato STOKESP [facility] RAD [id number] 05/04/2015 06:13:00 Document Registration [id number] 05/04/2015 06:13:00 Document Registration [id number] 09/20/2012 00:00:00 Document Registration [id number] 07/01/2012 13:02:00 Document Registration [id number] 06/21/2012 14:57:00 Document Registration [id number] 05/01/2011 13:00:00 Document Registration [id number] 02/13/2011 13:00:00 Document Registration [id number] 01/14/2011 13:00:00 Document Registration [id number] 10/23/2010 12:30:00 Document Registration [id number] 09/16/2010 17:15:00 Document Registration [id number] 05/09/2010 12:58:00 Document Registration
== END 2017-02-12 17:47 | disposition short-term general hospital (02) | DRG 189 ==
LOC: DELPENDDIS
PROVIDERS: ADMIT Physical Medicine & Rehabilitation; ATTEND Physical Medicine & Rehabilitation
DX: J96.10 Chronic respiratory failure, unspecified whether with hypoxia or hypercapnia (principal); J44.9 Chronic obstructive pulmonary disease, unspecified; Z93.0 Tracheostomy status; Z93.1 Gastrostomy status; F41.9 Anxiety disorder, unspecified; F32.9 Major depressive disorder, single episode, unspecified; G47.00 Insomnia, unspecified; K21.9 Gastro-esophageal reflux disease without esophagitis; L89.150 Pressure ulcer of sacral region, unstageable
CPT/HCPCS: 36415; 71010; 80053; 82805; 83735; 83880; 85007; 85027; 94640; 94760

== ENCOUNTER 2017-02-12 17:41 | Inpatient (IN) | payer MEDICARE, OTHER ==
[~2017-02-12] VITALS: Ht 162.6 cm; Wt 56.3 kg
[~2017-02-12 17:41] MED LIST changes: +AC160U10 PO; +ACID1TAB PO; +ALPR0.254 PO; +BENZ100C23 PO; +CALC-250 PO; +GUAI100L13 PO; +IPRA0.2S51 IH; +LEVA1.2516 INH; +MELA3TAB PO; +METH40VI2 IV; +MIDO10TA PO; +MIRT15TA8 PO; +NITR0.4T SL; +PANT40TA3 PO; +POLY17PO23 PO; +QUET25TA73 PO; +SENN-20 PO; +TRAZ100T92 PO
[2017-02-12] MEDS ORDERED: BENZONATATE 100 MG (TESSALON) CAPSULE PO PRN (18:15)
[2017-02-12] MEDS ORDERED: NITROGLYCERIN SUBLINGUAL 0.4 MG TAB (NITROSTAT) SL PRN (18:15)
[2017-02-12] MEDS ORDERED: APAP 325 MG/10.15 ML LIQ (TYLENOL) UDC PO PRN (18:15)
[2017-02-12] MEDS ORDERED: ALPRAZolam 0.25 MG (XANAX) TAB PO PRN (18:15)
[2017-02-12 18:25] VITALS: BP 141/71
[2017-02-12 19:25] VITALS: BP 127/71
[2017-02-12] MEDS: methylPREDNISolone 40 MG/ML (Solu-MEDROL) VIAL IV SCH (19:31)
[2017-02-12] MEDS ORDERED: RT-LEVALBUTEROL (XOPENEX) 1.25 MG/3 ML NEB NON-FORMULARY ONE (19:45)
[2017-02-12] MEDS: RT-IPRATROPIUM (ATROVENT) 0.5MG/2.5ML AMP IH SCH (20:14)
[2017-02-12] MEDS: RT-LEVALBUTEROL (XOPENEX) 1.25 MG/3 ML NEB NON-FORMULARY INH SCH (20:14)
[2017-02-12] MEDS ORDERED: traZODone 100 MG (DESYREL) TAB PO SCH (21:00)
[2017-02-12] MEDS ORDERED: guaiFENesin SYRUP 100 MG/5 ML 10 ML (ROBITUSSIN SF) PO SCH (21:00)
[2017-02-12] MEDS ORDERED: POLYETHYLENE GLYCOL 17 GM (MIRALAX) PACK PO SCH (21:00)
[2017-02-12] MEDS ORDERED: SENNA W/DOCUSATE (SENOKOT S) TABLET PO SCH (21:00)
[2017-02-12] MEDS ORDERED: LACTOBACILLUS Acidoph/Bulgar (LACTINEX/FLORANEX) TAB PO SCH (21:00)
[2017-02-12] MEDS ORDERED: QUEtiapine 25 MG (SEROquel) TAB IMMEDIATE RELEASE PO SCH (21:00)
[2017-02-12] MEDS ORDERED: MIRTAZAPINE 15 MG (REMERON) TAB PO SCH (21:00)
[2017-02-12] MEDS ORDERED: MELATONIN 3 MG TABLET PO SCH (21:00)
[2017-02-12] MEDS ORDERED: PANTOPRAZOLE 40 MG (PROTONIX) TAB PO SCH (21:00)
[2017-02-13] VITALS: BP 122/58
[2017-02-13] MEDS: methylPREDNISolone 40 MG/ML (Solu-MEDROL) VIAL IV SCH (00:16)
[2017-02-13] MEDS: RT-LEVALBUTEROL (XOPENEX) 1.25 MG/3 ML NEB NON-FORMULARY INH SCH ×2 (03:01→13:57)
[2017-02-13] MEDS: RT-IPRATROPIUM (ATROVENT) 0.5MG/2.5ML AMP IH SCH ×2 (03:01→13:57)
[2017-02-13 03:35] VITALS: BP 124/60
[2017-02-13 04:02] LABS: ABG BASE EXCESS 19.8 MMOL/L (-2.5-2.5); ABG OXYGEN SATURATION 95 % (94-100); ABG PO2 76 MMHG (79-93)
[2017-02-13 04:04] LABS: ALLENS TEST YES-POS
[2017-02-13 04:05] LABS: PATIENT TEMP 98.6
[2017-02-13 04:06] LABS: ABG HCO3 48 MMOL/L (23-27); ABG PCO2 110 MMHG (35-45); ABG PH 7.26 (7.37-7.43)
[2017-02-13] MEDS ORDERED: LORazepam INJ 2 MG/ML (ATIVAN) VIAL IVP PRN (04:30)
[2017-02-13] MEDS ORDERED: ACETAMINOPHEN 650 MG SUPP (TYLENOL) PR PRN (04:30)
[2017-02-13] MEDS ORDERED: morphine INJ 4 MG/ML 1 ML (VIAL/SYRINGE) IVP PRN (04:30)
[2017-02-13] MEDS ORDERED: ARTIFICAL TEARS 0.4 ML UNIT DOSE (REFRESH PLUS) OU PRN (04:30)
[2017-02-13] MEDS ORDERED: BISACODYL 10 MG SUPP (DULCOLAX) PR PRN (04:30)
[2017-02-13] MEDS ORDERED: SALIVA STIMULANT MOUTH SPRAY (BIOTENE) 1.5 OZ MM PRN (04:30)
[2017-02-13] MEDS ORDERED: RT-ALBUTEROL/IPRATROPIUM 3 ML (DUONEB) VIAL INH PRN (04:30)
[2017-02-13] MEDS ORDERED: PROMETHAZINE INJ 25 MG/ML (PHENERGAN) AMP IVP PRN (04:30)
[2017-02-13] MEDS ORDERED: GLYCOPYRROLATE 0.2 MG/ML (ROBINUL) 2 ML VIAL IV PRN (04:30)
[2017-02-13] MEDS ORDERED: ONDANSETRON 4 MG/2 ML (SDV) Z0FRAN IVP PRN (04:30)
[2017-02-13] MEDS ORDERED: morphine INJ 4 MG/ML 1 ML (VIAL/SYRINGE) ONE (04:32)
[2017-02-13] MEDS ORDERED: LEVOTHYROXINE 50 MCG (LEVOTHROID) TAB PO SCH (06:30)
[2017-02-13] MEDS ORDERED: predniSONE 5 MG TAB PO SCH (07:00)
[2017-02-13] MEDS: morphine INJ 4 MG/ML 1 ML (VIAL/SYRINGE) IVP PRN ×3 (07:04→11:42)
--- NOTE | 2017-02-13 08:12 | Pulmonary Consultation ---
History of Present Illness History of Present Illness Date of Consultation Late entry for 02/12/17 today is 02/13/17 08:07 Date of Admission History of Present Illness 69yo with hx of COPD who was treated at [facility] secondary to progressive dyspnea and was intubated for prolonged period of time and had tracheostomy. Pt was then transferred to [facility] for ventilator weaning and from [facility] transferred to our rehab unit. Upon my evaluation pt is in respiratory distress with accessory muscle use. Family is at bedside and state pt is a DNR and does not want ventilator connected to tracheostomy tube. Pt is also requiring 100% oxygen. Pt does not appear to be ready for rehab however just transferred in today. I am consulted for pulmonary managemtn. Allergies and Home Medications Allergies Coded Allergies: clarithromycin (Unverified Allergy, Unknown, 05/04/15) albuterol (Verified Adverse Reaction, Unknown, 02/12/17) Patient and her daughter state that albuterol causes patient to have anxiety attacks. Have been using Xopenex instead. hydrocodone (Verified Adverse Reaction, Unknown, Sedation, 02/12/17) oxycodone (Verified Adverse Reaction, Unknown, Sedation, 02/12/17) Patient and family state that patient becomes sedated and it takes multiple days for it to pass through patient's system. Home Medications Acetaminophen 325 Mg/10.15 Ml Soln, 325 MG PO Q4H PRN for MILD PAIN for 1 Days Prescribed by: TAMAR GRAY on 02/12/17 172 Alprazolam 0.25 Mg Tablet, 0.25 MG PO Q8H PRN for ANXIETY for 1 Days Prescribed by: TAMAR GRAY on 02/12/17 172 Benzonatate 100 Mg Capsule, 200 MG PO Q6HR PRN for COUGH for 1 Days Prescribed by: TAMAR GRAY on 02/12/17 172 Cholecalciferol 5,000 Unit Capsule, 5,000 UNIT PO DAILY for 1 Days Prescribed by: TAMAR GRAY on 02/12/17 172 Guaifenesin 100 Mg/5 Ml Liquid, 200 MG PO TID for 1 Days Prescribed by: TAMAR GRAY on 02/12/17 172 Ipratropium [place] 0.2 Mg/1 Ml Solution, 0.5 MG IH RTQ6HR for 1 Days Prescribed by: TAMAR GRAY on 02/12/171722 L. Acidophilus/[place] 1 Each Tablet, 1 TAB.CHEW PO BID for 1 Days Prescribed by: TAMAR GRAY on 02/12/171722 Levalbuterol HCl 1.25 Mg/3 Ml Vial.neb, 1.25 MG INH Q2HR PRN for SHORTNESS OF BREATH for 1 Days Prescribed by: TAMAR GRAY on 02/12/171722 Levalbuterol HCl 1.25 Mg/3 Ml Vial.neb, 1.25 MG INH Q6HR for 1 Days Prescribed by: TAMAR GRAY on 02/12/171722 Levothyroxine Sodium 50 Mcg Tablet, 50 MCG PO DAILY@0630 for 1 Days Prescribed by: TAMAR GRAY on 02/12/171722 Melatonin 3 Mg Tablet, 6 MG PO HS for 1 Days Prescribed by: TAMAR GRAY on 02/12/171722 Methylprednisolone Sod Succ/Pf 40 Mg/1 Ml Vial, 40 MG IV Q6HR for 1 Days Prescribed by: TAMAR GRAY on 02/12/171722 Midodrine HCl 10 Mg Tablet, 5 MG PO DAILY for 1 Days Prescribed by: TAMAR GRAY on 02/12/171722 Mirtazapine 15 Mg Tab.rapdis, 15 MG PO HS for 1 Days Prescribed by: TAMAR GRAY on 02/12/171722 Nitroglycerin 0.4 Mg Tab.subl, 0.4 MG SL Q5M PRN for CHEST PAIN for 1 Days Prescribed by: TAMAR GRAY on 02/12/171722 Pantoprazole Sodium 40 Mg Tablet.dr, 40 MG PO BID@0700,2100 for 1 Days Prescribed by: TAMAR GRAY on 02/12/171722 Polyethylene Glycol 3350 17 Gm Powd.pack, 17 GM PO HS for 1 Days Prescribed by: TAMAR GRAY on 02/12/171722 Quetiapine Fumarate 25 Mg Tablet, 25 MG PO HS for 1 Days Prescribed by: TAMAR GRAY on 02/12/171722 Sennosides/Docusate Sodium 1 Each Tablet, 1 EA PO BID for 1 Days Prescribed by: TAMAR GRAY on 3/30/17 1723 Trazodone HCl 100 Mg Tablet, 100 MG PO HS for 1 Days Prescribed by: TAMAR GRAY on 02/12/17 1723 Past Hcpevae-Lfqusk-Hwtfee Hx Patient Social History Alcohol Use: Denies Use Recreational Drug Use: No Smoking Status: Former Smoker Former Smoker/When Quit: Sep 16, 2010 Recent Foreign Travel: No Contact w/Someone Who Travel: No Recent Infectious Disease Expo: No Recent Hopitalizations: Yes (COPD exacerbation) Physical Abuse Screen: No Sexual Abuse: No Immunizations Up To Date Tetanus Booster (TDap): Unknown Date of Pneumonia Vaccine: May 02, 2015 Date of Influenza Vaccine: Oct 01, 2016 Seasonal Allergies Seasonal Allergies: No Surgeries HX Surgeries: Yes (appy) Respiratory Hx Respiratory Disorders: Yes Respiratory Disorders: Pneumonia, COPD, Emphysema Cardiovascular Hx Cardiac Disorders: Yes Neurological Hx Neurological Disorders: No Reproductive System Hx Reproductive Disorders: No (hysterectomy) Genitourinary Hx Genitourinary Disorders: No Gastrointestinal Hx Gastrointestinal Disorders: No Musculoskeletal Hx Musculoskeletal Disorders: No Endocrine Hx Endocrine Disorders: Yes Endocrine Disorders: Hypothyroidsim HEENT HX ENT Disorders: No Loss of Vision: Denies Hearing Impairment: Denies Cancer Hx Cancer: No Psychosocial Hx Psychiatric Problems: No Behavioral Health Disorders: Anxiety Integumentary HX Skin/Integumentary Disorder: No Blood Transfusions Hx Blood Disorders: No Family Medical History Family Medial History: Abdominal aortic aneurysm 19 MOTHER, Onset:60 years & older Alcoholism G8 BROTHER, Onset:15's - 20 G8 BROTHER, Onset:15's - 20 Arthritis 19 MOTHER, Onset:30's - 40 Asthma 19 FATHER, Onset:Childhood Cardiovascular disease 19 FATHER, Onset:50's - 60 Completed stroke 19 MOTHER, Onset:60 years & older Diabetes mellitus G8 BROTHER, Onset:25's - 30 Headache disorder 19 FATHER, Onset:Childhood Myocardial infarction G8 BROTHER, Onset:25's - 30 Respiratory disorder 19 FATHER, Onset:30's - 40 Tuberculosis 19 FATHER, Onset:30's - 40 No Family History of: AIDS Paul's disease Alzheimer's disease Aphasia Cancer of mouth Cataracts Colon cancer Congenital disease Congenital heart disease Coronary thrombosis Cystic fibrosis Deafness or hearing loss Dementia Drug abuse Dysphasia Fibrocystic disease of breast Gastroenteritis Glaucoma Hypercholesterolemia Hypertension Infertility Kidney disease Neoplasm Not obtainable due to adoption Osteoporosis Parkinson's disease Prostate cancer Psychosocial problem Seizure disorder Severe allergy Thyroid disease Visual disorder Exam Exam Vital Signs Date Time Temp Pulse Resp B/P (MAP) Pulse Ox O2 Delivery O2 Flow Rate FiO2 02/13/17 07:04 5.00 28 02/13/17 03:50 85 10.00 70 02/13/17 03:35 96.8 107 48 124/60 92 Trach Collar 10.00 02/13/17 03:01 93 10.00 70 02/13/17 00:31 84 10.00 50 02/13/17 00:00 96.7 101 24 122/58 95 Trach Collar 10.00 02/12/17 21:00 10.00 50 02/12/17 20:14 97 10.00 70 02/12/17 19:25 99.2 98 40 127/71 99 Trach Collar 10.00 02/12/17 18:25 99.1 106 28 141/71 95 Trach Collar 10.00 02/12/17 18:05 94 10.00 50 02/12/17 17:30 97 Trach Collar 10.00 50 I & O 02/13/17 07:00 Intake Total 100 ml Output Total 400 ml Balance -300 ml General Appearance: Moderate Distress Respiratory: Accessory Muscle Use, Decreased Breath Sounds, Respiratory Distress Cardiovascular: Tachycardia Gastrointestinal: normal bowel sounds, non tender, soft Neurologic/Psychiatric: Alert Lymphatic: No Adenopathy Assessment/Plan Assessment/Plan -Acute respiratory distress requiring 100% oxygen -Check labs, CXR and ABG -Pt will probably need to be transferred to inpt status -PT is a full DNR Clinical Quality Measures DVT/VTE Risk/Contraindication: Risk Factor Score Per Nursin RFS Level Per Nursing on Admit: 4+=Very High OJ MCDOWELL DO Feb 13, 2017 08:12
--- NOTE | 2017-02-13 08:17 | Pulmonary Progress Note ---
Subjective Subjective/Events-last exam Pt is now comfort care only. Exam Exam Vital Signs Date Time Temp Pulse Resp B/P (MAP) Pulse Ox O2 Delivery O2 Flow Rate FiO2 02/13/17 07:04 5.00 28 02/13/17 03:50 85 10.00 70 02/13/17 03:35 96.8 107 48 124/60 92 Trach Collar 10.00 02/13/17 03:01 93 10.00 70 02/13/17 00:31 84 10.00 50 02/13/17 00:00 96.7 101 24 122/58 95 Trach Collar 10.00 02/12/17 21:00 10.00 50 02/12/17 20:14 97 10.00 70 02/12/17 19:25 99.2 98 40 127/71 99 Trach Collar 10.00 02/12/17 18:25 99.1 106 28 141/71 95 Trach Collar 10.00 02/12/17 18:05 94 10.00 50 02/12/17 17:30 97 Trach Collar 10.00 50 I & O 02/13/17 07:00 Intake Total 100 ml Output Total 400 ml Balance -300 ml General Appearance: Mild Distress Respiratory: Accessory Muscle Use, Decreased Breath Sounds, Respiratory Distress Cardiovascular: Tachycardia Gastrointestinal: normal bowel sounds, non tender, soft Neurologic/Psychiatric: Other (sedated) Lymphatic: No Adenopathy Assessment/Plan Assessment/Plan -Acute respiratory distress requiring 100% oxygen -PT is now comfort care only per family request. Pt continued to worsen throughout night. Pt does currently appear comfortable on comfort care. Clinical Quality Measures DVT/VTE Risk/Contraindication: Risk Factor Score Per Nursin RFS Level Per Nursing on Admit: 4+=Very High OJ MCDOWELL DO Feb 13, 2017 08:17
[2017-02-13] MEDS ORDERED: VITAMIN D3 5,000 UNITS (CHOLECALCIFEROL ) CAPSULE PO SCH (09:00)
[2017-02-13] MEDS ORDERED: MIDODRINE 10 MG PO SCH (09:00)
--- NOTE | 2017-02-13 11:13 | History & Physical-Hospitalist ---
HPI History of Present Illness: HPI/Chief Complaint CC: Shortness of breath HPI: This is a 71yoWF pt of Dr. Jesus's that has many severe medical problems including trache due to chronic respiratory failure and PEG tube due to dysphagia that presents to the Inpatient rehab for recovery following an extensive and long illness at [facility]. But was found to be in acute not chronic respiratory failure and Dr. Terrazas was consulted, found to have respiratory acidosis of pH 7.26 and CO2 of 110. Family requested DNR and pt failed medical tx last night and was placed on comfort care end of life at [address] Terrazas Review: Pt is on comfort care. SW Review: Pt is actively dying. Palliative Care Review: Pt is not a candidate for rehab. Pt will be DC to [place] if process is long. Palliative care nurse and Sarah, are in accompanied me in updating the family and reviewing medications for comfort care. Patient is actively dying and will initiate morphine CLINICAL RESEARCH MANAGEMENT ASSOCIATE to facilitate comfort that process. Scribed by Osmar Gordon under the direct supervision of Dr. Newman. Source: patient Exam Limitations: no limitations Date Seen 02/13/17 Attending Physician Alexandria Newman DO PCP Alex Jesus DO Referring Physician Date of Admission Feb 12, 2017 at 18:01 Home Medications & Allergies Home Medications Reviewed patient Home Medication Reconciliation Form Allergies Allergies Coded Allergies clarithromycin (Unverified Allergy, Unknown, 05/04/15) albuterol (Verified Adverse Reaction, Unknown, 02/12/17) Patient and her daughter state that albuterol causes patient to have anxiety attacks. Have been using Xopenex instead. hydrocodone (Verified Adverse Reaction, Unknown, Sedation, 02/12/17) oxycodone (Verified Adverse Reaction, Unknown, Sedation, 02/12/17) Patient and family state that patient becomes sedated and it takes multiple days for it to pass through patient's system. Past Welkzkv-[id number]-Bypqpk Hx Patient Social History Marrital Status: Employed/Student: retired Alcohol Use: Denies Use Recreational Drug Use: No Smoking Status: Former Smoker Former smoker/When Quit: Sep 16, 2010 Physical Abuse Screen: No Sexual Abuse: No Recent Foreign Travel: No Contact w/other who traveled: No Recent Hopitalizations: Yes (COPD exacerbation) Recent Infectious Disease Expo: No Immunizations Up To Date Tetanus Booster (TDap): Unknown Date of Pneumonia Vaccine: May 02, 2015 Date of Influenza Vaccine: Oct 01, 2016 Seasonal Allergies Seasonal Allergies: No Surgeries HX Surgeries: Yes (appy) Respiratory Hx Respiratory Disorders: Yes Respiratory Disorders: Chronic Bronchitis, COPD, Pneumonia Cardiovascular Hx Cardiovascular Disorders: Yes Cardiac Disorders: High Cholesterol, Hypertension Neurological Hx Neurological Disorders: No Reproductive System Hx Reproductive Disorders: No (hysterectomy) Genitourinary Hx Genitourinary Disorders: No Gastrointestinal Hx Gastrointestinal Disorders: No Musculoskeletal Hx Musculoskeletal Disorders: No Endocrine Hx Endocrine Disorders: Yes Endocrine Disorders: Hypothyroidsim HEENT HX ENT Disorders: No Loss of Vision: Denies Hearing Impairment: Denies Cancer Hx Cancer: No Psychosocial Hx Psychiatric Problems: No Behavioral Health Disorders: Anxiety Integumentary HX Skin/Integumentary Disorder: No Blood Transfusions Hx Blood Disorders: No Family Medical History Family Hx: Abdominal aortic aneurysm 19 MOTHER, Onset:60 years & older Alcoholism G8 BROTHER, Onset:15's - 20 G8 BROTHER, Onset:15's - 20 Arthritis 19 MOTHER, Onset:30's - 40 Asthma 19 FATHER, Onset:Childhood Cardiovascular disease 19 FATHER, Onset:50's - 60 Completed stroke 19 MOTHER, Onset:60 years & older Diabetes mellitus G8 BROTHER, Onset:25's - 30 Headache disorder 19 FATHER, Onset:Childhood Myocardial infarction G8 BROTHER, Onset:25's - 30 Respiratory disorder 19 FATHER, Onset:30's - 40 Tuberculosis 19 FATHER, Onset:30's - 40 No Family History of: AIDS Overton's disease Alzheimer's disease Aphasia Cancer of mouth Cataracts Colon cancer Congenital disease Congenital heart disease Coronary thrombosis Cystic fibrosis Deafness or hearing loss Dementia Drug abuse Dysphasia Fibrocystic disease of breast Gastroenteritis Glaucoma Hypercholesterolemia Hypertension Infertility Kidney disease Neoplasm Not obtainable due to adoption Osteoporosis Parkinson's disease Prostate cancer Psychosocial problem Seizure disorder Severe allergy Thyroid disease Visual disorder Review of Systems ROS-Unable to Obtain: dying process Constitutional: see HPI Physical Exam Physical Exam Vital Signs Vital Sign - Last 12Hours 02/12/17 02/12/17 17:30 18:25 Temp 99.1 Pulse 106 Resp 28 B/P (MAP) 141/71 Pulse Ox 97 O2 Delivery Trach Collar O2 Flow Rate 10.00 FiO2 50 Capillary Refill : General Appearance: Chronically ill, Moderate Distress (tachypnea) Respiratory: Accessory Muscle Use, Crackles, Decreased Breath Sounds, Respiratory Distress, Wheezing Cardiovascular: Tachycardia Neurologic/Psychiatric: Other (unresponsive) Assessment/Plan Admission Diagnosis Assessment: Hypercapnic narcosis and end-stage respiratory failure patient in dying process Assessment and Plan Plan: Comfort care protocol Clinical Quality Measures DVT/VTE Risk/Contraindication: Risk Factor Score Per Nursin RFS Level Per Nursing on Admit: 4+=Very High ALEXANDRIA NEWMAN DO Feb 13, 2017 11:13
[2017-02-13] MEDS ORDERED: morphine PCA 30 MG/30 ML VIAL IV PRN (12:15)
[2017-02-13] MEDS ORDERED: NS IV 1000 ML 1,000 ML IV SCH (12:45)
[2017-02-13] MEDS ORDERED: NS IV 1000 ML 1,000 ML ONE (12:47)
--- NOTE | 2017-03-06 08:57 | Discharge Summary-Hospitalist ---
Diagnosis/Chief Complaint Date of Admission Feb 12, 2017 at 18:01 Date of Discharge Feb 14, 2017 at 07:55 Admission Diagnosis Assessment: Hypercapnic narcosis and end-stage respiratory failure patient in dying process Discharge Diagnosis Assessment: Hypercapnic narcosis and end-stage respiratory failure patient in dying process Plan: Comfort care protocol Reason Hospital Visit/Course CC: Shortness of breath HPI: This is a 71yoWF pt of Dr. Jesus's that has many severe medical problems including trache due to chronic respiratory failure and PEG tube due to dysphagia that presents to the Inpatient rehab for recovery following an extensive and long illness at [facility]. But was found to be in acute not chronic respiratory failure and Dr. Terrazas was consulted, found to have respiratory acidosis of pH 7.26 and CO2 of 110. Family requested DNR and pt failed medical tx last night and was placed on comfort care end of life at [address] Terrazas Review: Pt is on comfort care. Review: Pt is actively dying. Palliative Care Review: Pt is not a candidate for rehab. Pt will be DC to [place] if process is long. Palliative care nurse and Sarah, are in accompanied me in updating the family and reviewing medications for comfort care. Patient is actively dying and will initiate morphine HOTEL GENERAL MANAGER to facilitate comfort that process. Scribed by Osmar Gordon under the direct supervision of Dr. Newman. Hospital course: Patient had a short hospital course she was [facility] then she began to decline rapidly Dr. Terrazas was consulted due to the severity of her COPD and in- depth conversation ensued with family and everyone was in agreement for end-of- life status of which she was comatose shortly after arrival to the [facility] floor and family was at the bedside during her passing on comfort care protocol. Discharge Summary Discharge Physical Examination Allergies: Coded Allergies: clarithromycin (Unverified Allergy, Unknown, 05/04/15) albuterol (Verified Adverse Reaction, Unknown, 02/12/17) Patient and her daughter state that albuterol causes patient to have anxiety attacks. Have been using Xopenex instead. hydrocodone (Verified Adverse Reaction, Unknown, Sedation, 02/12/17) oxycodone (Verified Adverse Reaction, Unknown, Sedation, 02/12/17) Patient and family state that patient becomes sedated and it takes multiple days for it to pass through patient's system. Discharge Home Medications: Active Scripts Active Midodrine HCl 10 Mg Tablet 5 Mg PO DAILY 1 Days Benzonatate 100 Mg Capsule 200 Mg PO Q6HR PRN 1 Days Alprazolam 0.25 Mg Tablet 0.25 Mg PO Q8H PRN 1 Days Acetaminophen 325 Mg/10.15 Ml Soln 325 Mg PO Q4H PRN 1 Days Vitamin D (Cholecalciferol) 5,000 Unit Capsule 5,000 Unit PO DAILY 1 Days Trazodone HCl 100 Mg Tablet 100 Mg PO HS 1 Days Senna-Time S Tablet (Sennosides/Docusate Sodium) 1 Each Tablet 1 Ea PO BID 1 Days Quetiapine Fumarate 25 Mg Tablet 25 Mg PO HS 1 Days Pantoprazole Sodium 40 Mg Tablet.dr 40 Mg PO BID@0700,2100 1 Days Mirtazapine 15 Mg Tab.rapdis 15 Mg PO HS 1 Days Polyethylene Glycol 3350 17 Gm Powd.pack 17 Gm PO HS 1 Days Melatonin 3 Mg Tablet 6 Mg PO HS 1 Days Synthroid (Levothyroxine Sodium) 50 Mcg Tablet 50 Mcg PO DAILY@0630 1 Days Floranex Tablet (L. Acidophilus/Bulgaricus) 1 Each Tablet 1 Tab.chew PO BID 1 Days Guaifenesin 100 Mg/5 Ml Liquid 200 Mg PO TID 1 Days Solu-Medrol 40 mg Vial (Methylprednisolone Sod Succ/Pf) 40 Mg/1 Ml Vial 40 Mg IV Q6HR 1 Days Levalbuterol HCl 1.25 Mg/3 Ml Vial.neb 1.25 Mg INH Q6HR 1 Days Levalbuterol HCl 1.25 Mg/3 Ml Vial.neb 1.25 Mg INH Q2HR PRN 1 Days Ipratropium Sledge 0.2 Mg/1 Ml Solution 0.5 Mg IH RTQ6HR 1 Days Nitrostat (Nitroglycerin) 0.4 Mg Tab.subl 0.4 Mg SL Q5M PRN 1 Days Instructions to patient/family Please see electonic discharge instructions given to patient. Clinical Quality Measures DVT/VTE Risk/Contraindication: Risk Factor Score Per Nursin RFS Level Per Nursing on Admit: 4+=Very High SABRA NEWMAN DO Mar 06, 2017 08:57
--- OUTSIDE RECORDS SUMMARY | 2017-03-08 07:05 | XMS REPORT | Continuity of Care Document ---
Author Author [facility] Organization [facility] Address Unknown Phone Unavailable Allergies Active Description Code Type Severity Reaction Onset Reported/Identified Relationship to Patient Clinical Status Yes clarithromycin [id number] Drug Allergy Unknown N/A 05/04/2015 Yes albuterol [id number] Drug Allergy Unknown N/A 02/12/2017 Yes hydrocodone [id number] Drug Allergy Unknown Sedation 02/12/2017 Yes oxycodone [id number] Drug Allergy Unknown Sedation 02/12/2017 Medications Problems [...] Status Pt. Type Provider Facility Loc./Unit Complaint [id number] 02/12/2017 18:01:00 2016 07:55:00 DIS Inpatient SABRA NEWMAN DO [facility] 4TH COPD, RESPIRATORY FAILURE [id number] 02/12/2017 11:58:00 2016 17:47:00 DIS Inpatient ANTIONE HOOKER MD [facility] IRF RESPIRATORY FAILURE, COPD [id number] 05/18/2015 12:15:00 2014 12:40:00 DIS Inpatient BENJA ROSAS DO [facility] 4TH [id number] 05/04/2015 07:08:00 2014 17:33:00 DIS Inpatient BENJA ROSAS DO [facility] 4TH [id number] 05/16/2013 16:14:00 2012 23:59:59 CLS Outpatient CATIE ARSHAD [employer] MANAGER [facility] RAD [id number] 04/12/2013 11:48:00 2012 23:59:59 CLS Outpatient ROSASCATIE Fortunato STOKESP [facility] RAD [id number] 05/04/2015 06:13:00 Document Registration [id number] 05/04/2015 06:13:00 Document Registration [id number] 09/20/2012 00:00:00 Document Registration [id number] 07/01/2012 13:02:00 Document Registration [id number] 06/21/2012 14:57:00 Document Registration [id number] 05/01/2011 13:00:00 Document Registration [id number] 02/13/2011 13:00:00 Document Registration [id number] 01/14/2011 13:00:00 Document Registration [id number] 10/23/2010 12:30:00 Document Registration [id number] 09/16/2010 17:15:00 Document Registration [id number] 05/09/2010 12:58:00 Document Registration
== END 2017-02-14 07:55 | disposition expired | DRG 189 ==
LOC: 4TH 18:01
PROVIDERS: ADMIT Internal Medicine Critical Care Medicine; ATTEND Internal Medicine
DX: J96.02 Acute respiratory failure with hypercapnia (principal); J44.9 Chronic obstructive pulmonary disease, unspecified; F41.9 Anxiety disorder, unspecified; I10 Essential (primary) hypertension; E78.00 Pure hypercholesterolemia, unspecified; E03.9 Hypothyroidism, unspecified; Z51.5 Encounter for palliative care; Z66 Do not resuscitate; Z93.0 Tracheostomy status; Z87.891 Personal history of nicotine dependence
CPT/HCPCS: 82805; 94640; 94760; 94799